=== PATIENT | male | born 1965 | race Caucasian/White ===

== ENCOUNTER → 2016-05-24 | Outpatient (CLI) | payer BC | END | disposition home or self-care (01) | LOC: LAB.O 10:47 | PROVIDERS: ATTEND Nurse Practitioner Family | DX: R19.7 Diarrhea, unspecified (principal) ==

== ENCOUNTER → 2016-07-29 | Outpatient (CLI) | payer BC | END | disposition home or self-care (01) | LOC: LAB.O 08:17 | DX: K52.89 Other specified noninfective gastroenteritis and colitis (principal); R19.7 Diarrhea, unspecified ==

== ENCOUNTER → 2016-08-30 | Outpatient (CLI) | payer BC | LOC: LAB.O 10:44 | PROVIDERS: ATTEND Nurse Practitioner Family | DX: K51.814 Other ulcerative colitis with abscess (principal) ==

== ENCOUNTER → 2018-07-19 | Outpatient (CLI) | payer BC ==
--- NOTE | 2018-07-19 12:44 | CT ---
EXAM DESCRIPTION: Abdomen/Pelvis w/Contrast: Computed Tomography. CLINICAL HISTORY: 53 years Male GENERALIZED ABDOMINAL PAIN. Left side back pain radiating to the front. History of ulcerative colitis. COMPARISON: CT scan of the abdomen and pelvis with contrast 12/29/2010. TECHNIQUE: Spiral-axial scans at 5 x 5 mm intervals through the abdomen and pelvis, after nonionic IV contrast without oral contrast Coronal and sagittal 2.0 mm reconstructions. Delayed scans, liver through the pelvis. Axial-spiral 5mm. No adverse reactions. Total Exam DLP: 1516.76 mGy-cm. This exam was performed according to our departmental dose-optimization program which includes automated exposure control, adjustment of the mA and/or kV according to patient size and/or use of iterative reconstruction technique; to reduce radiation dose to as low as reasonably achievable (ALARA). FINDINGS: Lung bases and pleura: Small 3 mm nodule with pleural extensions inferior lingula. Similar appearance on the prior study. Bilateral pleural-parenchymal scarring. Liver, Stomach, Spleen, Adrenal Glands: Negative. Splenules abutting the spleen hilum and the anterior capsule. Pancreas, Gallbladder, Ducts: Question of some gravel in the neck of the gallbladder. Duct and pancreas are negative. Kidneys and Ureters: 4.8 mm radiodense stone in the proximal left ureter with minimal dilation of the proximal ureter and minimal periureteral edema. Contrast extends into the mid ureter, bypassing the stone. Renal pelves are not dilated and no left hydronephrosis. Less than 1 centimeter fatty nodule in the upper pole of the right kidney. Possible 2 mm nonobstructing stone in the anterior mid right kidney on the portal venous phase, obscured on the delayed phase images.. Mesentery: No fatty stranding or fascial thickening. No free fluid or free air. Aorta: Negative. Small Bowel: Normal caliber except for one slightly distended segment in the anterior mid pelvis with air-fluid level. Terminal Ileum/Cecum: Normal caliber with fecal matter in the cecum. Normal caliber of the appendix. Normal density of the surrounding fat. Colon: Edema is noted in the mucosa or submucosa of the sigmoid colon extending down into the rectum. No significant pericolonic fatty stranding or fluid. No obstruction. Pelvic Organs: Prostate gland abutting the seminal vesicles and base of the urinary bladder. No free fluid or dominant mass. Largest transverse diameter of the prostate gland is 4.2 x 3.0 cm. Spine and Bony Pelvis: Moderate spondylosis disc space loss and posterior calcified disc bulge at L5-S1 with bilateral significant foraminal narrowing. Grade 1 retrolisthesis L3-4. Abdominal Wall/Back Soft Tissues: Right fatty inguinal hernia not containing bowel. Fatty diastases at the umbilicus not containing bowel. IMPRESSION: 1.3.0 mm solid pulmonary nodule. No routine follow-up imaging is recommended. These guidelines do not apply to patients younger than 35 years, immunocompromised patients, and patients with cancer. Follow up in patients with significant comorbidities as clinically warranted. For lung cancer screening, adhere to Lung-RADS guidelines. Reference: Radiology. 2017; 284(1):228-43. 2. Almost 5 mm radiodense stone in the proximal left ureter with minimal hydroureter proximally but no hydronephrosis. A similar sized stone was seen in the mid collecting system of the left kidney on the prior CT scan. Minimal periureteral edema. Contrast does flow past the stone into the proximal ureter. Possible 2 mm nonobstructing stone in the anterior mid right kidney versus focal contrast in a minor calyx. Not seen on the prior study. No hydronephrosis on the right. Prostate gland is abutting the seminal vesicles and urinary bladder. 3. Mucosal or submucosal edema in the sigmoid and rectum with no obstruction or significant surrounding fatty reaction. This could represent a sequela of ulcerative colitis. 4. Gravel versus calcifications in the neck of the gallbladder. Gallbladder not dilated and common bile duct normal caliber. Right fatty inguinal hernia and diastases of the umbilicus with fat but no bowel. Slightly larger compared to the prior study. 5. Significant spondylosis L5-S1 with significant bilateral foraminal narrowing stable since the prior study. Electronically signed by: Larry Irwin MD 07/19/2018 12:41 PM CDT
== END ==
LOC: LAB.O 07:27
PROVIDERS: ATTEND Nurse Practitioner Family
DX: R91.1 Solitary pulmonary nodule (principal); N20.1 Calculus of ureter; K87 Disorders of gallbladder, biliary tract and pancreas in diseases classified elsewhere; K40.90 Unilateral inguinal hernia, without obstruction or gangrene, not specified as recurrent; M47.897 Other spondylosis, lumbosacral region

== ENCOUNTER → 2019-01-30 | Outpatient (CLI) | payer BC | LOC: LAB.O 07:14 | PROVIDERS: ATTEND Nurse Practitioner Family | DX: K51.90 Ulcerative colitis, unspecified, without complications (principal) ==

== ENCOUNTER 2019-04-13 08:28 | Emergency (ER) | payer BC ==
[2019-04-13 08:46] VITALS: TEMP 96
--- NOTE | 2019-04-13 08:49 | ED.PDOC ---
History of Present Illness - General Chief Complaint: Abdominal Pain Stated Complaint: BACK AND ABD PAIN Time Seen by Provider: 04/13/19 08:42 - History of Present Illness Initial Comments: 54 yo M PMH Chronic back Pain Kidney Stones and Ulcerative Colitis presents to ED c/o LLQ pain right flank or low back pain that worsened this am and began yesterday. Works at [employer] denies heavy lifting admits sitting for long periods. Denies fever chills nausea vomiting diarrhea chest pain sob diaphoresis. No change in diet rest bowel or bladder. Has PMD for follow up girlfriend at bedside denies drinking or smoking admits FH HTN DM no other c/o today. Review of Systems - Review of Systems Constitutional: States: see HPI EENTM: States: see HPI Respiratory: States: see HPI Cardiology: States: see HPI Gastrointestinal/Abdominal: States: see HPI Genitourinary: States: see HPI Musculoskeletal: States: see HPI Skin: States: see HPI Neurological: States: see HPI Endocrine: States: see HPI Hematologic/Lymphatic: States: see HPI All other Systems: Reviewed and Negative Past Medical History (General) - Patient Medical History Hx Stroke: No Hx Congestive Heart Failure: No Hx Diabetes: No Hx MRSA: No - Vaccination History Hx Tetanus, Diphtheria Vaccination: Yes Hx Influenza Vaccination: No Hx Pneumococcal Vaccination: No - Social History Hx Tobacco Use: No Hx Chewing Tobacco Use: No Hx Alcohol Use: No Hx Substance Use Treatment: No Hx Depression: No Hx Physical Abuse: No Hx Emotional Abuse: No Hx Suspected Abuse: No Family Medical History - Family History Mother Living Status: Cause of : cancer Father Living Status: Cause of : lung cancer Physical Exam - Physical Exam General Appearance: No apparent distress Eyes, Ears, Nose, Throat Exam: normal ENT inspection Neck: non-tender, full range of motion Respiratory: lungs clear Cardiovascular/Chest: regular rate, rhythm Gastrointestinal/Abdominal: non tender, soft, hernia Rectal Exam: deferred Back Exam: normal inspection, other - symmetrical no ecchymosis crepitus or step off positive right sided paraspinal lumbar tenderness Extremity: non-tender, normal inspection Neurologic: no motor/sensory deficits Skin Exam: normal color, warm/dry Lymphatic: no adenopathy Progress - Progress Progress: 04/13/19 09:09 A/P-Abdominal Pain, back pain, Muscle Strain-iv bolus tylenol toradol robaxin cbc cmp lipase ua cxr ct abdomen pelvis reassess 04/13/19 14:16 04/13/19 09:00 IV:Start .ONCE Laboratory Results - last 24 hr 04/13/19 04/13/19 04/13/19 09:00 09:00 09:15 WBC 5.7 RBC 5.07 Hgb 15.1 Hct 45.3 MCV 89.3 MCH 29.7 MCHC 33.3 RDW 13.0 Plt Count 233 MPV 7.9 Absolute Neuts (auto) 3.60 Absolute Lymphs (auto) 1.40 Absolute Monos (auto) 0.50 Absolute Eos (auto) 0.20 Absolute Basos (auto) 0.10 Neutrophils % 63.2 Lymphocytes % 24.5 Monocytes % 8.0 Eosinophils % 3.1 Basophils % 1.2 Sodium 137 Potassium 3.8 Chloride 105 Carbon Dioxide 26 Anion Gap 9.8 L BUN 12 Creatinine 0.90 BUN/Creatinine Ratio 13.3 Random Glucose 109 H Serum Osmolality 274.2 L Calcium 9.2 Total Bilirubin 0.7 AST 19 ALT 21 Alkaline Phosphatase 62 Serum Total Protein 7.7 Albumin 4.3 Globulin 3.4 Albumin/Globulin Ratio 1.3 Lipase 49 Urine Color Yellow Urine Appearance Clear Urine pH 6.0 Ur Specific [place] 1.025 Urine Protein Negative Urine Glucose (UA) Negative Urine Ketones Negative Urine Blood Negative Urine Nitrite Negative Urine Bilirubin Negative Urine Urobilinogen 0.2 Ur Leukocyte Esterase Negative Urine RBC 0-1 Urine WBC 0-1 Ur Epithelial Cells 1-3 Urine Bacteria Rare Urine Mucus Trace Reporting MD: Domenic Moore Collar Packer date: Dictation date: EXAM DESCRIPTION: Chest,1 View CLINICAL HISTORY: 54 years Male, Abdominal Pain COMPARISON: None available. TECHNIQUE: AP radiograph of the chest was obtained. FINDINGS: The trachea appears midline. The cardiomediastinal silhouette is within normal limits. The pulmonary vasculature appears unremarkable. No acute consolidation. The left costophrenic angle is not included in the film.. No pleural effusion on the right. IMPRESSION: 1. No acute cardiopulmonary process. The left costophrenic angle is not included in the radiograph. Electronically signed by: Domenic Moore MD 04/13/2019 10:37 AM BOX MACHINE OPERATOR Reporting MD: Domenic Moore Collar Packer date: Dictation date: EXAM DESCRIPTION: Abdoment/Pelvis w/o Contrast CLINICAL HISTORY: 54 years Male, Abdominal Pain COMPARISON: CT abdomen pelvis dated July 19, 2018. TECHNIQUE: Contiguous 3 mm axial images were obtained from the lung bases to the level of proximal femora without the administration of intravenous or oral contrast. Sagittal and coronal reconstructions were reviewed. This exam was performed according to our departmental dose-optimization program, which includes aut omated exposure control, adjustment of the mA and/or kV according to patient size and/or use of iterative reconstruction technique. FINDINGS: The visualized lower thorax appears grossly unremarkable. Limited evaluation of the solid abdominal organs due to lack of intravenous contrast. The liver appears grossly unremarkable with no intrahepatic ductal dilatation. The gallbladder, spleen, pancreas and both adrenal glands appear grossly unremarkable. Right kidney: Stable appearing 3 mm nonobstructing intrarenal stone in the midpole and a 2 mm nonobstructing intrarenal stone in the lower pole with no evidence of hydronephrosis, hydroureter are perinephric stranding. Left kidney: Stable appearing 6 mm calcified stone in the left proximal ureter with no evidence of hydroureter, hydronephrosis or perinephric stranding. The ureter distal to the stone is collapsed. 2 mm nonobstructing intrarenal stone in the midpole. The distal esophagus and the stomach appear grossly unremarkable. The small and large bowel loops appear grossly unremarkable with no abnormal dilatation or wall thickening. Stable appearing featureless sigmoid colon are not rectum are noted with no significant interval change. Scattered diverticula are noted throughout the colon with no evidence of acute diverticulitis. The appendix appears grossly unremarkable. No free intraperitoneal air or fluid. No enlarged abdominal or retroperitoneal lymphadenopathy. The urinary bladder is a moderately distended and appears grossly unremarkable. The prostate and seminal vesicles appear grossly unremarkable. Bilateral fat-containing inguinal hernia is noted right worse than left. No evidence of bowel herniation. No free fluid in the pelvis. 1.5 cm anterior abdominal defect at the umbilicus level with focal fat herniation. Review of the bone windows demonstrate no acute osseous abnormality. IMPRESSION: 1. Stable appearing 6 mm calcified stone in the left proximal ureter, appears unchanged in position in comparison to prior CT abdomen pelvis dated July 19, 2018. No evidence of upstream hydronephrosis or hydroureter. 2. 2 mm nonobstructing intrarenal stone in the midpole of left kidney. 3. 2 nonobstructing intrarenal stones in the right kidney with no evidence of hydronephrosis, hydroureter are perinephric stranding. 4. Diverticulosis with no evidence of acute diverticulitis. 5. No other acute intra-abdominal process. Electronically signed by: Domenic Moore MD 04/13/2019 10:14 AM BOX MACHINE OPERATOR On re-evaluation and re-examination pt reports pain is much improved he is non toxic appearing and tolerating PO. Patient has urologist for follow up and was given strict return to ER precautions for pain fever and inability to tolerate PO. Patient and girlfriend understand and agree with the plan. Departure - Departure Clinical Impression: Kidney stones, Muscle strain Abdominal pain Qualifiers: Abdominal location: generalized Qualified Code(s): R10.84 - Generalized abdominal pain Back pain Qualifiers: Back pain location: low back pain Chronicity: unspecified Back pain laterality: right Sciatica presence: without sciatica Qualified Code(s): M54.5 - Low back pain Time of Disposition: 14:28 Disposition: Discharge to Home or Self Care Condition: Fair Departure Forms: ED Discharge - Pt. Copy, Patient Portal Self Enrollment Instructions: DI for Abdominal Pain-Adult Referrals: Dale Casillas MD [Primary Care Provider] - 1-2 Weeks Prescriptions: Acetaminophen [Tylenol] 650 mg PO Q6H PRN #30 tab PRN Reason: Pain Ciprofloxacin HCl [Cipro] 500 mg PO BID #14 tab Ibuprofen 600 mg PO Q6H PRN #20 tab PRN Reason: Pain Home Medications: Ambulatory Orders Acetaminophen [Tylenol] 650 mg PO Q6H PRN #30 tab 04/13/19 Ciprofloxacin HCl [Cipro] 500 mg PO BID #14 tab 04/13/19 Ibuprofen 600 mg PO Q6H PRN #20 tab 04/13/19 Mesalamine [Mesalamine Dr] 4.8 gm PO DAILY 04/13/19
[2019-04-13] MEDS ORDERED: ACETAMINOPHEN 500 MG TAB PO ONE (09:02)
[2019-04-13] MEDS ORDERED: SODIUM CHLORIDE 0.9% 1000ML 1,000 ML IVS ONE (09:03)
[2019-04-13] MEDS ORDERED: KETOROLAC TROMETHAMINE INJ 30 MG/ML VIAL IV ONE (10:19)
[2019-04-13] MEDS ORDERED: METHOCARBAMOL 750 MG TAB PO ONE (10:20)
--- NOTE | 2019-04-13 10:59 | CT ---
EXAM DESCRIPTION: Abdoment/Pelvis w/o Contrast CLINICAL HISTORY: 54 years Male, Abdominal Pain COMPARISON: CT abdomen pelvis dated July 19, 2018. TECHNIQUE: Contiguous 3 mm axial images were obtained from the lung bases to the level of proximal femora without the administration of intravenous or oral contrast. Sagittal and coronal reconstructions were reviewed. This exam was performed according to our departmental dose-optimization program, which includes automated exposure control, adjustment of the mA and/or kV according to patient size and/or use of iterative reconstruction technique. FINDINGS: The visualized lower thorax appears grossly unremarkable. Limited evaluation of the solid abdominal organs due to lack of intravenous contrast. The liver appears grossly unremarkable with no intrahepatic ductal dilatation. The gallbladder, spleen, pancreas and both adrenal glands appear grossly unremarkable. Right kidney: Stable appearing 3 mm nonobstructing intrarenal stone in the midpole and a 2 mm nonobstructing intrarenal stone in the lower pole with no evidence of hydronephrosis, hydroureter are perinephric stranding. Left kidney: Stable appearing 6 mm calcified stone in the left proximal ureter with no evidence of hydroureter, hydronephrosis or perinephric stranding. The ureter distal to the stone is collapsed. 2 mm nonobstructing intrarenal stone in the midpole. The distal esophagus and the stomach appear grossly unremarkable. The small and large bowel loops appear grossly unremarkable with no abnormal dilatation or wall thickening. Stable appearing featureless sigmoid colon are not rectum are noted with no significant interval change. Scattered diverticula are noted throughout the colon with no evidence of acute diverticulitis. The appendix appears grossly unremarkable. No free intraperitoneal air or fluid. No enlarged abdominal or retroperitoneal lymphadenopathy. The urinary bladder is a moderately distended and appears grossly unremarkable. The prostate and seminal vesicles appear grossly unremarkable. Bilateral fat-containing inguinal hernia is noted right worse than left. No evidence of bowel herniation. No free fluid in the pelvis. 1.5 cm anterior abdominal defect at the umbilicus level with focal fat herniation. Review of the bone windows demonstrate no acute osseous abnormality. IMPRESSION: 1. Stable appearing 6 mm calcified stone in the left proximal ureter, appears unchanged in position in comparison to prior CT abdomen pelvis dated July 19, 2018. No evidence of upstream hydronephrosis or hydroureter. 2. 2 mm nonobstructing intrarenal stone in the midpole of left kidney. 3. 2 nonobstructing intrarenal stones in the right kidney with no evidence of hydronephrosis, hydroureter are perinephric stranding. 4. Diverticulosis with no evidence of acute diverticulitis. 5. No other acute intra-abdominal process. Electronically signed by: Domenic Moore MD 04/13/2019 10:14 AM [facility]
--- NOTE | 2019-04-13 11:38 | RAD ---
EXAM DESCRIPTION: Chest,1 View CLINICAL HISTORY: 54 years Male, Abdominal Pain COMPARISON: None available. TECHNIQUE: AP radiograph of the chest was obtained. FINDINGS: The trachea appears midline. The cardiomediastinal silhouette is within normal limits. The pulmonary vasculature appears unremarkable. No acute consolidation. The left costophrenic angle is not included in the film.. No pleural effusion on the right. IMPRESSION: 1. No acute cardiopulmonary process. The left costophrenic angle is not included in the radiograph. Electronically signed by: Domenic Moore MD 04/13/2019 10:37 AM [facility]
[2019-04-13 14:34] VITALS: BP 157/106; O2SAT 98
== END 2019-04-13 14:36 | disposition home or self-care (01) ==
LOC: ER 08:28
DX: N20.1 Calculus of ureter (principal); N20.0 Calculus of kidney; T14.8XXA Other injury of unspecified body region, initial encounter; M54.5 Low back pain; K57.30 Diverticulosis of large intestine without perforation or abscess without bleeding; G89.29 Other chronic pain; Z87.19 Personal history of other diseases of the digestive system; X58.XXXA Exposure to other specified factors, initial encounter; Y92.9 Unspecified place or not applicable
CPT/HCPCS: 71045; 74176; 80053; 81001; 83690; 85025; J1885; J7030

== ENCOUNTER 2019-04-16 01:29 | Emergency (ER) | payer BC ==
[2019-04-16] MEDS ORDERED: SODIUM CHLORIDE 0.9% (FLUSH) 10 ML SYG IV PRN (01:43)
[2019-04-16] MEDS ORDERED: ONDANSETRON INJ 4 MG/2 ML VIAL IV ONE (01:58)
[2019-04-16] MEDS ORDERED: MORPHINE SULFATE INJ 10 MG/ML VIAL IV ONE ×2 (01:58→02:49)
[2019-04-16] MEDS ORDERED: SODIUM CHLORIDE 0.9% 1000ML 1,000 ML IVS ONE (01:58)
--- NOTE | 2019-04-16 02:04 | ED.PDOC ---
History of Present Illness - General Chief Complaint: Problem Time Seen by Provider: 04/16/19 01:40 Source: patient - History of Present Illness Initial Comments: 54 yo male with PMH of ulcerative colitis, kidney stones, HTN who presents with cc of right flank pain. Onset on morning of 04/12 with rapid worsening over 24 hours - presented to ED here at that time. Work-up revealed some nonobstructing kidney stones on CT scan and fat-containing BL inguinal hernias and an umbilical hernia. Pt was discharged home with Rx of Cipro and Toradol. He was also begun on BP meds for newly diagnosed HTN that day. Reports pain was fairly well-controlled for next 24 hours after that but has since begun worsening again over past 24 hours and markedly worse this evening. Located to Right flank with radiation to right lower flank and RLQ, constant, sharp, 8/10 severity at rest, 10/10 with movement, cannot get comfortable in any position, no relief with oral Toradol, ibuprofen, and Tylenol at home just WHE[employer]. Also reports new onset of constant numbness sensation to right inguinal region and right anterior thigh without weakness. Pt denies any acute injury prior to symptom onset. Denies any fevers, chills, chest pain, dyspnea, urinary sx's. Reports nausea without emesis and also reports 1 episode of watery diarrhea this evening which was new. Denies any hx of abdominal surgeries in the past. Allergies/Adverse Reactions: Allergies Penicillins Allergy (Verified 04/16/19 01:46) Home Medications: Ambulatory Orders Acetaminophen [Tylenol] 650 mg PO Q6H PRN #30 tab 04/13/19 Ciprofloxacin HCl [Cipro] 500 mg PO BID #14 tab 04/13/19 Ibuprofen 600 mg PO Q6H PRN #20 tab 04/13/19 Mesalamine [Mesalamine Dr] 4.8 gm PO DAILY 04/13/19 Acetaminophen W/ Codeine [Tylenol W/ CODEINE #3] 1 ea PO Q6H PRN 7 Days #15 04/16/19 Cyclobenzaprine HCl [Flexeril] 10 mg PO Q8H PRN 30 Days #30 tab 04/16/19 Ondansetron Odt [Zofran ODT] 8 mg PO Q8H PRN 5 Days #10 tab 04/16/19 Tamsulosin HCl [Flomax] 0.4 mg PO DAILY 7 Days #7 cap 04/16/19 Review of Systems - Review of Systems Review of Systems: 04/16/19 02:11 as per HPI All other Systems: Reviewed and Negative Past Medical History (General) - Patient Medical History Hx Stroke: No Hx Congestive Heart Failure: No Hx Diabetes: No Hx Cancer: No Hx MRSA: No - Vaccination History Hx Tetanus, Diphtheria Vaccination: Yes Hx Influenza Vaccination: No Hx Pneumococcal Vaccination: No - Social History Hx Tobacco Use: No Hx Chewing Tobacco Use: No Hx Alcohol Use: No Hx Substance Use: No Hx Substance Use Treatment: No Hx Depression: No Hx Physical Abuse: No Hx Emotional Abuse: No Hx Suspected Abuse: No Family Medical History - Family History Mother Living Status: Cause of : cancer Father Living Status: Cause of : lung cancer Physical Exam - Physical Exam General Appearance: Alert, No apparent distress, Restless Eye Exam: bilateral normal Ears, Nose, Throat: hearing grossly normal, normal ENT inspection, normal pharynx Neck: non-tender, full range of motion, supple, normal inspection Respiratory: lungs clear, normal breath sounds, no respiratory distress, no accessory muscle use Cardiovascular/Chest: normal peripheral pulses, regular rate, rhythm, no edema, no murmur Peripheral Pulses: radial,right: 2+, radial,left: 2+ Gastrointestinal/Abdominal: soft, no organomegaly, tenderness - marked ttp to right lower flank region, moderate to right upper flank, RLQ, RUQ Back Exam: no vertebral tenderness, CVA tenderness (R), decreased range of motion Extremity: normal range of motion, non-tender, normal inspection, no pedal edema, normal capillary refill Neurologic: office specialist II-XII nml as tested, alert, normal mood/affect, oriented x 3, sensory deficit - reports decreased sensation to light touch over right inguinal and right anterior thigh regions Skin Exam: normal color, warm/dry Progress - Progress Progress: 04/16/19 02:14 Right lower flank and abdominal pain -etiology remains uncertain - question kidney stone vs UTI/pyelo vs colitis vs gallbladder etiology vs other infectious vs strangulated hernia vs acute appendicitis vs lumbar disc herniation vs other -BP markedly elevated to 211/126 on arrival, remainder of vitals wnl, afebrile -stat labwork, UA, lactate -1 L NS bolus morphine 6 mg IV for pain, Zofran 4 mg IV for nausea 04/16/19 05:11 -Pain much improved with morphine 6 mg IV x2 in ED. Vitals remain stable. BP improved to 160s/100s with improved pain control. CBC, CMP unremarkable. Repeat CT A/P w/wo contrast obtained which is read as unchanged from 04/13/19 and no acute processes. However, I feel there is possibly a 4 mm stone in the right distal ureter without any corresponding hydroureteronephrosis or stranding. This could possibly be the cause of pt's acute pain and sx's. Otherwise, discussed the possibility of an acute low back muscle strain as well. Will give trial of Flomax 0.4 mg daily x7 days and give short-course Rx of Tylenol #3 PRN for breakthrough pain. Advised close f/u with his PCP and strict return precautions issued. -dc home in good condition Francisco Lyman MD Billing #[id number] - Results/Orders Results/Orders: 04/16/19 01:43 IV Care:Saline Lock per Protoc QSHIFT Sodium Chloride 0.9% (Flush) [Saline Flush Syringe] 10 ml IV PRN PRN 04/16/19 01:46 URINALYSIS Stat 04/16/19 02:26 Hold Metformin x 48Hrs [id number] Laboratory Results - last 24 hr 04/16/19 04/16/19 04/16/19 01:45 01:45 01:45 WBC 7.5 RBC 5.02 Hgb 15.0 Hct 44.4 MCV 88.4 MCH 29.9 MCHC 33.8 RDW 13.1 Plt Count 238 MPV 7.8 Absolute Neuts (auto) 5.00 Absolute Lymphs (auto) 1.70 Absolute Monos (auto) 0.50 Absolute Eos (auto) 0.20 Absolute Basos (auto) 0.10 Neutrophils % 67.2 Lymphocytes % 22.2 Monocytes % 7.2 Eosinophils % 2.1 Basophils % 1.3 Sodium 138 Potassium 3.5 L Chloride 104 Carbon Dioxide 25 Anion Gap 12.5 BUN 15 Creatinine 0.93 BUN/Creatinine Ratio 16.1 Random Glucose 133 H Serum Osmolality 278.4 Lactic Acid 0.9 Calcium 9.3 Total Bilirubin 0.6 Direct Bilirubin < 0.1 Indirect Bilirubin 0.5 AST 21 ALT 22 Alkaline Phosphatase 65 Serum Total Protein 7.7 Albumin 4.6 Lipase 50 Departure - Departure Clinical Impression: Strain of muscle, fascia and tendon of lower back, sequela, Kidney stones Time of Disposition: 05:18 Disposition: Discharge to Home or Self Care Condition: Fair Departure Forms: ED Discharge - Pt. Copy, Patient Portal Self Enrollment Instructions: DI for Kidney Stones, Lumbar Muscle Strain (DC) Diet: low salt diet Referrals: FAHAD HERNANDEZ IV, DECKHAND CLAM DREDGE [Active Staff] - 1 Week Prescriptions: Acetaminophen W/ Codeine [Tylenol W/ CODEINE #3] 1 ea PO Q6H PRN 7 Days #15 PRN Reason: Pain Cyclobenzaprine HCl [Flexeril] 10 mg PO Q8H PRN 30 Days #30 tab PRN Reason: Muscle Spasms Ondansetron Odt [Zofran ODT] 8 mg PO Q8H PRN 5 Days #10 tab PRN Reason: Nausea Tamsulosin HCl [Flomax] 0.4 mg PO DAILY 7 Days #7 cap Home Medications: Ambulatory Orders Acetaminophen [Tylenol] 650 mg PO Q6H PRN #30 tab 04/13/19 Ciprofloxacin HCl [Cipro] 500 mg PO BID #14 tab 04/13/19 Ibuprofen 600 mg PO Q6H PRN #20 tab 04/13/19 Mesalamine [Mesalamine Dr] 4.8 gm PO DAILY 04/13/19 Acetaminophen W/ Codeine [Tylenol W/ CODEINE #3] 1 ea PO Q6H PRN 7 Days #15 04/16/19 Cyclobenzaprine HCl [Flexeril] 10 mg PO Q8H PRN 30 Days #30 tab 04/16/19 Ondansetron Odt [Zofran ODT] 8 mg PO Q8H PRN 5 Days #10 tab 04/16/19 Tamsulosin HCl [Flomax] 0.4 mg PO DAILY 7 Days #7 cap 04/16/19 Comments: Remain well-hydrated and advance your diet and activity level slowly as tolerated. Continue taking OTC medication for pain such ibuprofen 600 mg every 6 hours and Tylenol 650 mg every 6 hours as needed. You may take the Tylenol #3 as directed for breakthrough pain. Do not drive or operate heavy machinery when taking this medicine. You may also take Flexeril for muscle spasms and Zofran for nausea as directed. Return if symptoms worsen or pain is poorly controlled or other concerning symptoms develop. Follow up with your primary care doctor in next 5-7 days is recommended for repeat evaluation or sooner as needed.
--- NOTE | 2019-04-16 04:44 | CT ---
CT abdomen and pelvis with and without contrast on 04/16/2019 CLINICAL INDICATION: Acute right back pain, history of kidney stones TECHNIQUE: Multiple axial images are obtained throughout the abdomen and pelvis both prior to and following the administration of IV contrast. This exam was performed according to our departmental dose-optimization program, which includes automated exposure control, adjustment of the mA and/or kV according to patient size and/or use of iterative reconstruction technique. Total DLP is 1323.84 mGy*cm. COMPARISON: 04/13/2019 FINDINGS: Abdomen: The lung bases are clear. There are a few small nonobstructing bilateral renal stones. Small right renal cyst is noted. There is stable essentially nonobstructing 5-6 mm stone likely adherent along the wall of the left proximal ureter as this has been present at this location for a prolonged period of time. No other ureteral stones are noted and there is no hydronephrosis bilaterally. The solid abdominal organs are otherwise unremarkable. There is no abdominal adenopathy. There is no free fluid or free air within the abdomen. The abdominal portion of the GI tract is unremarkable. There is a small umbilical hernia containing only fat. Pelvis: There is no free fluid in the pelvis. There is a small right inguinal hernia containing only fat. There is no pelvic adenopathy. The pelvic portion of the GI tract including the appendix is unremarkable. No acute bony abnormality is noted. IMPRESSION: 1. Stable bilateral nephrolithiasis with a stable nonobstructing left proximal ureteral stone. 2. Otherwise no acute abnormality. Electronically signed by: Daron Bowden 04/16/2019 4:29 AM PRACTICE DIRECTOR
[2019-04-16] MEDS ORDERED: TAMSULOSIN 0.4 MG CAP PO ONE (05:10)
[2019-04-16] MEDS ORDERED: ACETAMINOPHEN W/COD #3 TAB (ER Disp) PO ONE (05:10)
[2019-04-16] MEDS ORDERED: ONDANSETRON ODT 8 MG TAB ONE (05:40)
[2019-04-16] MEDS ORDERED: ONDANSETRON ODT 8 MG TAB SL ONE (05:43)
[2019-04-16 06:00] VITALS: BP 169/100; TEMP 98.4; O2SAT 97
== END 2019-04-16 05:55 | disposition home or self-care (01) ==
LOC: ER 01:29
DX: S39.012A Strain of muscle, fascia and tendon of lower back, initial encounter (principal); N20.1 Calculus of ureter; R11.0 Nausea; R19.7 Diarrhea, unspecified; I10 Essential (primary) hypertension; Z87.19 Personal history of other diseases of the digestive system; Z88.0 Allergy status to penicillin; Z87.442 Personal history of urinary calculi; X58.XXXA Exposure to other specified factors, initial encounter; Y92.9 Unspecified place or not applicable
CPT/HCPCS: 74170; 80048; 80076; 81001; 83605; 83690; 85025; J2270; J2405; J7030

== ENCOUNTER → 2019-04-24 | Outpatient (CLI) | payer BC ==
--- NOTE | 2019-04-24 19:21 | MRI ---
EXAM DESCRIPTION: Lumbar Spine w/o Contrast : Magnetic Resonance Imaging. 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 TECHNIQUE: Multiplanar, multiple standard sequences, non contrast MRI, lumbar spine. FINDINGS: L5-S1: The disc is well visualized on axial T2 series 501, image 3. Marked disc space loss. Moderate endplate reactive changes more to the right of midline in the left. Desiccated signal in the disc remnant with no fluid. Left posterior disc osteophyte protrusion, 7.5 mm, encroaching on the thecal sac and the descending left S1 nerve above the lateral recess. Minimal degenerative hypertrophy of the posterior flavum ligaments and facets (posterior elements), more left than right. AP canal diameter 13 mm. Disc osteophyte complex encroaching on the left foramen and abutting the left L5 nerve root. Moderate narrowing. Minimal bulge of the right side disc osteophyte complex into the right foramen with mild to moderate narrowing. L4-L5: Minimal disc desiccation with disc space preserved. Tiny midline bulge. Moderate degenerative hypertrophy of the posterior elements. Bilaterally shortened pedicles. AP canal diameter 10 mm. Trace retrolisthesis. Mild bilateral foraminal narrowing. L3-L4: Disc desiccation minimal disc space loss posterior. Grade 1 retrolisthesis 3 mm. Disc and posterior endplate L4 spur abutting the thecal sac more to the left than the right with right subarticular recess narrowing and left subarticular recess stenosis and encroachment on the left L4 nerve. Bilaterally shortened pedicles. Mild degenerative hypertrophy of the posterior elements. AP canal diameter 7 mm. Mild right foraminal narrowing and mild to moderate left foraminal narrowing. L2-L3: Disc desiccation and minimal disc space loss posterior. Trace retrolisthesis. Posterior midline hyperintense T2 weighted annular fissure. Mild degenerative hypertrophy of the posterior elements. Bilateral shortened pedicles. AP canal diameter 9 mm. Bilateral mild foraminal narrowing. L1-L2: Normal signal in the disc with disc space preserved. Mild degenerative hypertrophy of the posterior elements. Bilateral pedicle shortening. Mild canal narrowing. Bilateral foramina are patent. Conus terminates just above the disc space. T12-L1: Normal signal in the disc with disc space preserved. Posterior elements unremarkable. Canal and foramina are patent. No scoliosis. Paravertebral soft tissues negative.. Distal cord normal signal and caliber. Otherwise normal marrow signal in the remaining vertebral bodies and the posterior elements. Vertebral bodies are not compressed at any level. IMPRESSION: 1. Canal narrowing or stenosis at multiple levels due to bulging discs, hypertrophic degeneration of the posterior elements, and bilateral shortened pedicles. 2. Moderate spondylosis at L5-S1 with significant narrowing of the disc space, but abnormal fluid in the disc. Left posterior disc osteophyte protrusion encroaching on the descending left S1 nerve above the lateral recess. Mild canal narrowing. Left side disc osteophyte complex also encroaching on the left foramen and abutting the left L5 nerve. 3. Multifactorial borderline mild central canal stenosis at L4-L5. 4. Multifactorial moderate central canal stenosis L3-L4. Posterior disc and inferior endplate bulge also extending inferiorly narrowing the right lateral recess with left lateral recess stenosis. Possible compromise left L4 nerve. Correlate for radiculopathy. 5. Posterior midline annular fissure L2-L3. Multifactorial mild central canal stenosis. Electronically signed by: Larry Irwin MD 04/24/2019 7:19 PM [facility]
--- NOTE | 2019-04-24 19:38 | MRI ---
EXAM DESCRIPTION: Thoracic Spine w/o Contrast no scoliosis. CLINICAL HISTORY: INTERVERTEBRAL DISC DISORDER WITH RADICULOPATHY THORACIC REGION. Back pain and numbness. COMPARISON: MRI scan of the lumbar spine without contrast. TECHNIQUE: Multiplanar, multiple standard sequences, non contrast MRI, thoracic spine. FINDINGS: T9-T10 disc desiccation with posterior bilateral lobar bulge more to the right of the cord in the left with possible compromise of the right T9 nerve. Mild canal narrowing. Mild bilateral foraminal narrowing. Facet joints and posterior flavum ligament (posterior elements) are unremarkable. Minimal desiccation in the T8-T9 disc with minimal bulge to the right of midline. Canal and foramina are patent. Posterior elements unremarkable. Minimal disc space loss at T3-T4: Minimal disc desiccation with no bulging. Posterior elements unremarkable. Canal and foramina are patent. Remaining discs normal signal. Disc spaces are preserved. Canal and foramina are patent. Facet joints are unremarkable. Conus terminates below the T12-L1 disc space. Cord with normal signal, no compression. No scoliosis. Paravertebral soft tissues are unremarkable. Normal marrow signal in the remaining vertebral bodies and the posterior elements. Vertebral bodies are not compressed at any level. IMPRESSION: 1. Posterior bilateral bulge of the T9-10 disc on either side of the cord with probable compromise of the right T9 nerve in the canal. No canal or foraminal stenosis. Minimal desiccation of the T8-9 disc with no significant bulging or herniation. No canal or foraminal stenosis. Minimal desiccation T3-T4 disc with no bulging. No canal or foraminal stenosis. Electronically signed by: Larry Irwin MD 04/24/2019 7:36 PM [facility]
== END ==
LOC: MRI 08:36
PROVIDERS: ATTEND Nurse Practitioner Family
DX: M51.15 Intervertebral disc disorders with radiculopathy, thoracolumbar region (principal); M51.84 Other intervertebral disc disorders, thoracic region; M51.34 Other intervertebral disc degeneration, thoracic region; M51.16 Intervertebral disc disorders with radiculopathy, lumbar region; M51.86 Other intervertebral disc disorders, lumbar region; M47.897 Other spondylosis, lumbosacral region; M25.78 Osteophyte, vertebrae; M48.061 Spinal stenosis, lumbar region without neurogenic claudication